=== PATIENT | male | born 1980 ===

== ENCOUNTER 2016-10-16 12:25 | Emergency (ER) | payer OTHER ==
[2016-10-16 12:39] VITALS: RESP 18; O2SAT 98
--- NOTE | 2016-10-16 13:50 | RAD ---
PROCEDURE: Radiographs of the Left Forearm HISTORY: Trauma COMPARISON: None available. TECHNIQUE: Frontal and lateral views obtained. FINDINGS: BONES: Bone alignment and mineralization are normal. No fracture or destructive lesion. JOINT SPACES: Unremarkable. OTHER FINDINGS: None. IMPRESSION: No acute fracture or dislocation.
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
--- NOTE | 2016-10-16 13:53 | RAD ---
PROCEDURE: Right ring finger radiographs. HISTORY: Trauma COMPARISON: None. TECHNIQUE: AP radiograph of the right hand, as well as spot oblique and lateral images of ring finger were obtained. FINDINGS: RIGHT RING FINGER: Normal right ring finger, without fracture or focal lesion. Remainder of the right hand (as seen on the AP view) grossly unremarkable. JOINTS: Normal. SOFT TISSUES: Normal. OTHER FINDINGS: None. IMPRESSION: No acute fracture or dislocation.
[2016-10-16 15:15] VITALS: BP 123/65; PULSE 88; TEMP 98
== END 2016-10-16 15:15 | disposition home or self-care (01) ==
LOC: C.ER 12:25
DX: S63.61 Unspecified sprain of other and unspecified finger(s) (principal); S50.12XD Contusion of left forearm, subsequent encounter; V44.6XXD Car passenger injured in collision with heavy transport vehicle or bus in traffic accident, subsequent encounter

== ENCOUNTER 2016-12-08 19:55 | Emergency (ER) | payer SELFPAY ==
[2016-12-08 20:02] VITALS: BP 128/68; PULSE 64; RESP 20; TEMP 99; O2SAT 96
--- NOTE | 2016-12-08 20:16 | C.PDOC ---
History Of Present Illness Vin Dukes, a 35 year old male, presents to the ED with a laceration to his right thumb. The patient states that he cut his finger on the edge of a sharp piece of cup. Tetanus up to date. Denies numbness, weakness. Time Seen by Provider: 12/08/16 20:05 Chief Complaint (Nursing): Abnormal Skin Integrity History Per: Patient History/Exam Limitations: no limitations Onset/Duration Of Symptoms: Hrs Current Symptoms Are (Timing): Still Present Past Medical History Reviewed: Historical Data, Nursing Documentation, Vital Signs Vital Signs: Last Vital Signs Temp 99.0 F 12/08/16 19:58 Pulse 64 12/08/16 19:58 Resp 20 12/08/16 19:58 BP 128/68 12/08/16 19:58 Pulse Ox 96 12/08/16 20:30 - Medical History PMH: No Chronic Diseases Surgical History: No Surg Hx Family History: States: Unknown Family Hx - Social History Hx Alcohol Use: Yes Hx Substance Use: No - Immunization History Hx Tetanus Toxoid Vaccination: Yes Hx Influenza Vaccination: No Hx Pneumococcal Vaccination: No Review Of Systems Musculoskeletal: Positive for: Other (laceration to right thumb.) Neurological: Negative for: Weakness, Numbness Physical Exam - Physical Exam Appears: Non-toxic, No Acute Distress Skin: Normal Color, Warm, Dry, No Rash Head: Atraumatic, Normacephalic, No Tenderness, No Swelling Eye(s): bilateral: Normal Inspection, PERRL, EOMI Back: Normal Inspection, No CVA Tenderness Extremity: Normal ROM (Full ROM to right thumb), No Tenderness, No Pedal Edema, No Deformity, No Swelling, Other (0.5 cm laceration to lateral aspect of the distal right thumb) Neurological/Psych: Oriented x3, Normal Speech, Normal Cognition, Normal Motor, Normal Sensation Gait: Steady ED Course And Treatment O2 Sat by Pulse Oximetry: 96 (RA) Pulse Ox Interpretation: Normal Laceration - Laceration Repair finger laceration Wound Length (In cm): .5cm Description Of Wound: Linear Wound Cleansed With: Betadine, Sterile Saline Wound Examination: Irrigated With Saline, No FB With Wound Exploration, No Tendon Injury With Wound Exploration Wound Closure: Steri Strips, Skin Glue Wound Complexity: Simple Medical Decision Making Medical Decision Making: Patient tolerated procedure well. finger splint was applied by JAMARI Muir to avoid movement. Disposition - Disposition Referrals: [facility] [Outside] Disposition: HOME/ ROUTINE Disposition Time: 20:30 Condition: GOOD Additional Instructions: KEEP THE WOUND CLEAN AND DRY. REMOVE THE STERI STRIPES IN 1 WEEK. Instructions: Laceration (ED), Skin Adhesive Care (ED) Forms: [employer] (Slovenian) - Clinical Impression Clinical Impression: Laceration - Scribe Statement The provider has reviewed the documentation as recorded by the Scribnorbert Feliz All medical record entries made by the Maverickibe were at my direction and personally dictated by me. I have reviewed the chart and agree that the record accurately reflects my personal performance of the history, physical exam, medical decision making, and the department course for this patient. I have also personally directed, reviewed, and agree with the discharge instructions and disposition.
== END 2016-12-08 20:36 | disposition home or self-care (01) ==
LOC: C.ER 19:55
DX: S61.011A Laceration without foreign body of right thumb without damage to nail, initial encounter (principal); W45.8XXA Other foreign body or object entering through skin, initial encounter

== ENCOUNTER 2017-04-04 11:06 | Inpatient (IN) | payer OTHER ==
[2017-04-04] MEDS ORDERED: Sodium Chloride 0.9% 1,000 ML IV ONE (12:06)
--- NOTE | 2017-04-04 12:20 | C.PDOC ---
History Of Present Illness 36 y/o male, with no significant PMHx, presents to ED c/o lower abdominal pain, and nausea since yesterday. Denies vomiting, diarrhea, or fever. Time Seen by Provider: 04/04/17 11:31 Chief Complaint (Nursing): Abdominal Pain History Per: Patient History/Exam Limitations: no limitations Onset/Duration Of Symptoms: Days Current Symptoms Are (Timing): Still Present Radiation Of Pain To:: None Quality Of Discomfort: "Pain" Associated Symptoms: Nausea Alleviating Factors: None Recent travel outside of the [place]: No Additional History Per: Patient Past Medical History Reviewed: Historical Data, Nursing Documentation, Vital Signs Vital Signs: Last Vital Signs Temp 98.1 F 04/04/17 15:36 Pulse 73 04/04/17 15:36 Resp 16 04/04/17 15:36 BP 145/75 04/04/17 15:36 Pulse Ox 98 04/04/17 15:36 Family History: States: Unknown Family Hx - Social History Hx Alcohol Use: Yes Hx Substance Use: No - Immunization History Hx Tetanus Toxoid Vaccination: Yes Hx Influenza Vaccination: No Hx Pneumococcal Vaccination: No Review Of Systems Except As Marked, All Systems Reviewed And Found Negative. Constitutional: Negative for: Fever, Chills Gastrointestinal: Positive for: Nausea, Abdominal Pain. Negative for: Vomiting , Diarrhea, Constipation Genitourinary: Negative for: Dysuria, Frequency, Hematuria Physical Exam - Physical Exam Appears: Non-toxic, No Acute Distress Skin: Normal Color, Warm, Dry Head: Atraumatic, Normacephalic Eye(s): bilateral: Normal Inspection Oral Mucosa: Moist Chest: Symmetrical Cardiovascular: Rhythm Regular, No Murmur Respiratory: Normal Breath Sounds, No Rales, No Rhonchi, No Wheezing Gastrointestinal/Abdominal: Soft, Tenderness (RLQ), No Guarding, No Rebound Back: No CVA Tenderness Extremity: Normal ROM Neurological/Psych: Oriented x3, Normal Speech ED Course And Treatment - Laboratory Results Result Diagrams: 04/04/17 13:13 04/04/17 13:13 Lab Interpretation: No Acute Changes O2 Sat by Pulse Oximetry: 99 Pulse Ox Interpretation: Normal - CT Scan/US No standard instances Other Rad Studies (CT/US): Read By Radiologist, Radiology Report Reviewed CT/US Interpretation: FINDINGS: LOWER THORAX: Unremarkable. LIVER: Liver is upper limits of normal measuring nearly 18 cm in CC dimension. No obvious hepatic mass collection or calcification identified on this noncontrast study. GALLBLADDER AND BILE DUCTS: Gallbladder is physiologically distended. No evidence of intraluminal gallbladder calculi. PANCREAS: Portions of the pancreas are not well delineated particularly near the pancreatic head and proximal body due to adjacent non-opacified bowel however the visualized portions of the pancreas otherwise appear grossly unremarkable without masses collections calcifications or significant ductal dilatation. SPLEEN: Spleen exhibits normal size and attenuation pattern without mass collection or calcification. ADRENALS: . No adrenal lesions are identified. KIDNEYS AND URETERS: There is a vague approximately 11.5 mm rounded low attenuation anterior cortex mid/lower pole right kidney associate with a punctate calcification consistent with a complex cyst. Followup nonemergent ultrasound could be performed for further evaluation. Additional punctate calcification seen anterior aspect left renal collecting system mid-lower pole left kidney. BLADDER: Urinary bladder is incompletely distended. No evidence of intraluminal urinary bladder calculi. REPRODUCTIVE: Prostate gland measures approximately 3.7 cm in transverse dimension and mildly encroaches -compresses the floor of the urinary bladder. . APPENDIX: Appendix is not seen with certainty however what probably represents a very tiny small caliber retrocecal normal appearing appendix best seen on axial image number [id number]. No periappendiceal inflammatory changes. BOWEL: Evaluation of the bowel is somewhat limited the due to the lack of oral contrast material. The stomach is incompletely distended which presumably accounts for slight thick-walled appearance. Visualized loops of small bowel exhibit normal without evidence of tethering. There appears to be some mild wall thickening of the wall of the terminal ileum. Rule out nonspecific enteritis. No evidence of acute mechanical small bowel obstruction. Moderate amount of stool seen within the cecum and ascending colon with moderate amount of air amount of air and lesser amount of stool within the transverse colon. Most of the descending and sigmoid colon collapsed. Note that the there does appear to be prominence of submucosal fat within the descending and sigmoid colon; rule out sequela of chronic inflammation. PERITONEUM: Unremarkable. No fluid collection. No free air. LYMPH NODES: Unremarkable. No enlarged lymph nodes. VASCULATURE: No evidence of abdominal aortic or iliac artery aneurysm. BONES: No acute compression fractures. Minor chronic anterior stature loss of the T11, T12 and L1 segments. Mild multilevel degenerative spondylosis. OTHER FINDINGS: None. IMPRESSION: Mild wall thickening of the terminal ileum ; rule out nonspecific enteritis. . Note that the there does appear to be prominence of submucosal fat within the descending and sigmoid colon; rule out sequela of chronic inflammation. . Rule out Crohn's disease. Tiny cyst with a punctate calcification along peripheral border (complex cyst) mid to lower pole right kidney. Followup studies recommended for further evaluation. Punctate nonobstructing calculus within the anterior collecting system mid to lower pole left kidney. Progress Note: Blood work, UA, Abd & Pelvis CT ordered and reviewed. Pt was given Toradol and IV fluids. Case discussed and patient evaluated by university president who request zosyn and admission to Dr Gee. Treated with zosyn IV Reassessment Condition: Unchanged Medical Decision Making Medical Decision Making: patient continued to have RLQ abdominal pain resident care aide consulted who evaluated at bedside Disposition Discussed With .: Tacho Gee Doctor Will See Patient In The: Hospital - Disposition Disposition: HOSPITALIZED Disposition Time: 16:20 Condition: STABLE Forms: [employer] (Solomon Islander) - POA Present On Arrival: None - Clinical Impression Clinical Impression: Abdominal pain, Appendicitis - PA / MANAGER AVIATION / Resident Statement MD/DO has reviewed & agrees with the documentation as recorded. - Scribe Statement The provider has reviewed the documentation as recorded by the Maverickibnorbert Kevin All medical record entries made by the Roger were at my direction and personally dictated by me. I have reviewed the chart and agree that the record accurately reflects my personal performance of the history, physical exam, medical decision making, and the department course for this patient. I have also personally directed, reviewed, and agree with the discharge instructions and disposition.
[2017-04-04 13:25] LABS: BASO # 0.1 K/uL (0.0-0.2); BASO % 0.5 % (0.0-2.0); EOS % 0.1 % (0.0-4.0); HEMATOCRIT 44.5 % (35.0-51.0); LYMPH # 1.2 K/uL (1.0-4.3); LYMPH % 10.5 % (20.0-40.0); MEAN CELL VOLUME 83.2 fL (80.0-94.0); MEAN CORPUSCULAR HEMOGLOBIN 27.6 pg (27.0-31.0); MEAN CORPUSCULAR HGB CONC 33.2 g/dL (33.0-37.0); MEAN PLATELET VOLUME 7.7 fL (7.2-11.7); MONO # 0.6 K/uL (0.0-0.8); MONO % 5.3 % (0.0-10.0); RED CELL DISTRIBUTION WIDTH 12.3 % (11.5-14.5); WHITE BLOOD COUNT 11.2 K/uL (4.8-10.8)
--- NOTE | 2017-04-04 13:25 | CT ---
PROCEDURE: CT scan abdomen pelvis 04/04/2017 HISTORY: Pain COMPARISON: No prior study available for comparison TECHNIQUE: Contiguous helical/transaxial images of the abdomen and pelvis pelvis performed without oral or intravenous. Coronal and Sagittal reformats generated. Radiation dose: Total exam DLP = 504.46 mGy-cm. This CT exam was performed using one or more of the following dose reduction techniques: Automated exposure control, adjustment of the mA and/or kV according to patient size, and/or use of iterative reconstruction technique. FINDINGS: LOWER THORAX: Unremarkable. LIVER: Liver is upper limits of normal measuring nearly 18 cm in CC dimension. No obvious hepatic mass collection or calcification identified on this noncontrast study. GALLBLADDER AND BILE DUCTS: Gallbladder is physiologically distended. No evidence of intraluminal gallbladder calculi. PANCREAS: Portions of the pancreas are not well delineated particularly near the pancreatic head and proximal body due to adjacent non-opacified bowel however the visualized portions of the pancreas otherwise appear grossly unremarkable without masses collections calcifications or significant ductal dilatation. SPLEEN: Spleen exhibits normal size and attenuation pattern without mass collection or calcification. ADRENALS: . No adrenal lesions are identified. KIDNEYS AND URETERS: There is a vague approximately 11.5 mm rounded low attenuation anterior cortex mid/lower pole right kidney associate with a punctate calcification consistent with a complex cyst. Followup nonemergent ultrasound could be performed for further evaluation. Additional punctate calcification seen anterior aspect left renal collecting system mid-lower pole left kidney. BLADDER: Urinary bladder is incompletely distended. No evidence of intraluminal urinary bladder calculi. REPRODUCTIVE: Prostate gland measures approximately 3.7 cm in transverse dimension and mildly encroaches -compresses the floor of the urinary bladder. . APPENDIX: Appendix is not seen with certainty however what probably represents a very tiny small caliber retrocecal normal appearing appendix best seen on axial image number [id number]. No periappendiceal inflammatory changes. BOWEL: Evaluation of the bowel is somewhat limited the due to the lack of oral contrast material. The stomach is incompletely distended which presumably accounts for slight thick-walled appearance. Visualized loops of small bowel exhibit normal without evidence of tethering. There appears to be some mild wall thickening of the wall of the terminal ileum. Rule out nonspecific enteritis. No evidence of acute mechanical small bowel obstruction. Moderate amount of stool seen within the cecum and ascending colon with moderate amount of air amount of air and lesser amount of stool within the transverse colon. Most of the descending and sigmoid colon collapsed. Note that the there does appear to be prominence of submucosal fat within the descending and sigmoid colon; rule out sequela of chronic inflammation. PERITONEUM: Unremarkable. No fluid collection. No free air. LYMPH NODES: Unremarkable. No enlarged lymph nodes. VASCULATURE: No evidence of abdominal aortic or iliac artery aneurysm. BONES: No acute compression fractures. Minor chronic anterior stature loss of the T11, T12 and L1 segments. Mild multilevel degenerative spondylosis. OTHER FINDINGS: None. IMPRESSION: Mild wall thickening of the terminal ileum ; rule out nonspecific enteritis. . Note that the there does appear to be prominence of submucosal fat within the descending and sigmoid colon; rule out sequela of chronic inflammation. . Rule out Crohn's disease Tiny cyst with a punctate calcification along peripheral border (complex cyst) mid to lower pole right kidney. Followup studies recommended for further evaluation. Punctate nonobstructing calculus within the anterior collecting system mid to lower pole left kidney.
[2017-04-04 13:34] LABS: ALKALINE PHOSPHATASE 86 U/L (38-126); ALT/SGPT 58 U/L (21-72); AST/SGOT 29 U/L (17-59); BILIRUBIN,TOTAL 0.7 mg/dL (0.2-1.3); BLOOD UREA NITROGEN 7 mg/dL (9-20); CALCIUM 8.7 mg/dl (8.6-10.4); CARBON DIOXIDE 28 mmol/L (22-30); CHLORIDE 102 mmol/L (98-107); GFR AFRICAN-AMERICAN > 60; GLUCOSE,RANDOM 108 mg/dL (75-110); SODIUM 136 mmol/L (132-148); TOTAL PROTEIN 8.4 g/dL (6.3-8.3)
[2017-04-04 13:35] LABS: ALB/GLOB RATIO 0.9 (1.0-2.1)
[2017-04-04 14:38] LABS: RBC URINE 32 /hpf (0-3); URINE BILIRUBIN NEGATIVE (NEGATIVE); URINE BLOOD 3+ (NEGATIVE); URINE COLOR Yellow (YELLOW); URINE GLUCOSE (UA) NORMAL (Normal); URINE KETONE 1+ mg/dL (NEGATIVE); URINE LEUKOCYTE ESTERASE NEG Leu/uL (Negative); URINE PROTEIN NEGATIVE (NEGATIVE); URINE UROBILINOGEN NORMAL mg/dL (0.2-1.0); WBC URINE 1 /hpf (0-5)
[2017-04-04] MEDS ORDERED: Piperacillin/Tazobact 3.375 gm 100 ML IV STA (16:10)
--- NOTE | 2017-04-04 16:27 | CP.PCM.HP ---
History of Present Illness - History of Present Illness History of Present Illness: General Surgery: Dr Gee pt is a 36M with no PMH who presents to ED with abdominal pain. pt states pain started last night around the umbilicus, and over the course of the evening migrated to the RLQ. He has had associated nausea, but no vomiting. Several episodes of diarrhea, non-bloody. Pt states he has never had pain like this before. No family history of IBS/IBD. Pt states he is very hungry PMH: none PSH: none Social: marijuana, occasional drinker Note: pt requesting no narcotics. Present on Admission - Present on Admission Any Indicators Present on Admission: No Review of Systems - Review of Systems All systems: reviewed and no additional remarkable complaints except (as per hpi ) Past Patient History - Infectious Disease Hx of Infectious Diseases: None - Past Social History Smoking Status: Heavy Smoker > 10 Cigarettes Daily - PSYCHIATRIC Hx Substance Use: No - SURGICAL HISTORY Hx Surgeries: No - ANESTHESIA Hx Anesthesia: No Hx Anesthesia Reactions: No Meds Allergies/Adverse Reactions: Allergies Allergy/AdvReac Type Severity Reaction Status Date / Time No Known Allergies Allergy Verified 04/04/17 11:29 Physical Exam - Constitutional Appears: Well, No Acute Distress - Head Exam Head Exam: ATRAUMATIC, NORMAL INSPECTION, NORMOCEPHALIC - Eye Exam Eye Exam: EOMI, Normal appearance, PERRL Pupil Exam: NORMAL ACCOMODATION, PERRL - ENT Exam ENT Exam: Mucous Membranes Moist, Normal Exam - Neck Exam Neck exam: Positive for: Normal Inspection - Respiratory Exam Respiratory Exam: Clear to Auscultation Bilateral, NORMAL BREATHING PATTERN - Cardiovascular Exam Cardiovascular Exam: REGULAR RHYTHM - GI/Abdominal Exam GI & Abdominal Exam: Guarding (localized guarding to RLQ), Normal Bowel Sounds, Soft, Tenderness (RLQ ) Additional comments: - psoas - rovsings + obturator - Rectal Exam Rectal Exam: NORMAL INSPECTION - Exam Exam: Circumcision, NORMAL INSPECTION External exam: NORMAL EXTERNAL EXAM Speculum exam: NORMAL SPECULUM EXAM Bimanual exam: NORMAL BIMANUAL EXAM - Extremities Exam Extremities exam: Positive for: normal inspection - Back Exam Back exam: NORMAL INSPECTION - Neurological Exam Neurological exam: Alert, CN II-XII Intact, Normal Gait, Oriented x3, Reflexes Normal - Psychiatric Exam Psychiatric exam: Normal Affect, Normal Mood - Skin Skin Exam: Dry, Intact, Normal Color, Warm Results - Vital Signs Recent Vital Signs: Last Vital Signs Temp 98.1 F 04/04/17 15:36 Pulse 73 04/04/17 15:36 Resp 16 04/04/17 15:36 BP 145/75 04/04/17 15:36 Pulse Ox 99 04/04/17 16:19 - Labs Result Diagrams: 04/04/17 13:13 04/04/17 13:13 Labs: Laboratory Results - last 24 hr 04/04/17 04/04/17 04/04/17 13:13 13:13 14:12 WBC 11.2 H RBC 5.35 Hgb 14.8 Hct 44.5 MCV 83.2 MCH 27.6 MCHC 33.2 RDW 12.3 Plt Count 271 MPV 7.7 Neut % (Auto) 83.6 H Lymph % (Auto) 10.5 L White % (Auto) 5.3 Eos % (Auto) 0.1 Baso % (Auto) 0.5 Neut # 9.3 H Lymph # 1.2 White # 0.6 Eos # 0.0 Baso # 0.1 Sodium 136 Potassium 4.0 Chloride 102 Carbon Dioxide 28 Anion Gap 10 BUN 7 L Creatinine 0.8 Est GFR ( Amer) > 60 Est GFR (Non-Af Amer) > 60 Random Glucose 108 Calcium 8.7 Total Bilirubin 0.7 AST 29 ALT 58 Alkaline Phosphatase 86 Total Protein 8.4 H Albumin 4.1 Globulin 4.3 H Albumin/Globulin Ratio 0.9 L Lipase 25 Urine Color Yellow Urine Clarity Clear Urine pH 6.0 Ur Specific Chin[place] 1.014 Urine Protein Negative Urine Glucose (UA) Normal Urine Ketones 1+ H Urine Blood 3+ H Urine Nitrate Negative Urine Bilirubin Negative Urine Urobilinogen Normal Ur Leukocyte Esterase Neg Urine WBC (Auto) 1 Urine RBC (Auto) 32 H Assessment & Plan - Assessment and Plan (Free Text) Assessment: 36M with undifferentiated abdominal pain; r/o appendicitis Plan: admit IV abx IV fluids can trial CLD - NPO @ [facility] if pt does not improve with consider dx laparoscopy in the AM d/w Dr Gerard Araiza, PGY3
[2017-04-04] MEDS: Sodium Chloride 0.9% 1,000 ML IV SCH (16:36)
[2017-04-04] MEDS ORDERED: Piperacill/Tazo 3.375gm in Dex 3.375 GM/50 ML BAG IVPB ONE (17:00)
[2017-04-04] MEDS: Piperacill/Tazo 3.375gm in Dex 3.375 GM/50 ML BAG IVPB SCH (22:46)
[2017-04-05] MEDS: Sodium Chloride 0.9% 1,000 ML IV SCH ×3 (02:46→13:49)
[2017-04-05] MEDS: Piperacill/Tazo 3.375gm in Dex 3.375 GM/50 ML BAG IVPB SCH ×4 (04:43→23:55)
[2017-04-05 08:11] LABS: BASO # 0.1 K/uL (0.0-0.2); EOS # 0.1 K/uL (0.0-0.7); EOS % 0.6 % (0.0-4.0); LYMPH # 2.2 K/uL (1.0-4.3); LYMPH % 22.6 % (20.0-40.0); MEAN CELL VOLUME 82.7 fL (80.0-94.0); MEAN CORPUSCULAR HEMOGLOBIN 27.8 pg (27.0-31.0); MEAN CORPUSCULAR HGB CONC 33.6 g/dL (33.0-37.0); MEAN PLATELET VOLUME 7.6 fL (7.2-11.7); MONO % 10.1 % (0.0-10.0); RED CELL DISTRIBUTION WIDTH 12.3 % (11.5-14.5); WHITE BLOOD COUNT 9.5 K/uL (4.8-10.8)
[2017-04-05 08:29] LABS: ALB/GLOB RATIO 1.4 (1.0-2.1); ALKALINE PHOSPHATASE 66 U/L (38-126); ALT/SGPT 49 U/L (21-72); AST/SGOT 21 U/L (17-59); BILIRUBIN,TOTAL 0.9 mg/dL (0.2-1.3); BLOOD UREA NITROGEN 8 mg/dL (9-20); CARBON DIOXIDE 28 mmol/L (22-30); CHLORIDE 105 mmol/L (98-107); GFR AFRICAN-AMERICAN > 60; GLUCOSE,RANDOM 87 mg/dL (75-110); POTASSIUM 4.1 mmol/L (3.6-5.2); SODIUM 138 mmol/L (132-148); TOTAL PROTEIN 6.1 g/dL (6.3-8.3)
[2017-04-05 08:33] LABS: INR 1.2
[2017-04-05] MEDS ORDERED: Pneumococcal 23-Valent Vaccine IM ONE (10:00)
[2017-04-05] MEDS ORDERED: Influenza Vaccine 60 mcg/0.5 mL SYR (4YR UP) IM ONE (10:00)
[2017-04-05] MEDS ORDERED: Bupivacaine-Epi 0.5%-1:200,000 PF Inj IJ ONE (10:45)
[2017-04-05] MEDS ORDERED: Propofol 10 mg/ml Inj (20 ML) ONE (11:37)
[2017-04-05] MEDS ORDERED: Midazolam 2 MG/2 ML VIAL ONE (11:37)
[2017-04-05] MEDS ORDERED: Lactated Ringer's 1,000 ML IV ONE (11:37)
[2017-04-05] MEDS ORDERED: Neostigmine Methylsulfate 3mg/3ml Syringe IV ONE (12:25)
[2017-04-05] MEDS ORDERED: HYDROmorphone 0.5 mg/0.5 ml ISec IVP PRN ×3 (12:44→18:10)
--- NOTE | 2017-04-05 12:44 | PCM.SURG1 ---
Surgeon's Initial Post Op Note - Surgeon's Notes Surgeon: Dr. Gee Cigar Bander Hand: Dr. Rudd PGY1 Type of Anesthesia: General Endo, Local Pre-Operative Diagnosis: Appendicitis Operative Findings: see operative report Post-Operative Diagnosis: Appendicitis Operation Performed: Laparascopic Appendectomy Specimen/Specimens Removed: Appendix Estimated Blood Loss: EBL {In ML}: 10 Blood Products Given: N/A Drains Used: No Drains Post-Op Condition: Good Date of Surgery/Procedure: 04/05/17 Time of Surgery/Procedure: 12:44
--- NOTE | 2017-04-05 13:50 | OP ---
PROCEDURE DATE: 04/04/2017 PREOPERATIVE DIAGNOSIS: Acute appendicitis. POSTOPERATIVE DIAGNOSIS: Acute appendicitis. PROCEDURE: Laparoscopic appendectomy. FINDINGS: The appendix was markedly swollen, enlarged, but there was no gross perforation noted, no fluid in the peritoneal cavity. DESCRIPTION OF PROCEDURE: Under general anesthesia, the patient was prepared and draped in the usual sterile fashion. CO2 was insufflated through a Veress needle inserted in the umbilical area. A 12 mm trocar was inserted in the umbilicus through which a laparoscope was inserted under direct vision and 5 mm suprapubic port and then a 5 mm left lower quadrant ports were inserted. Through this ports, the grasper and the [place] port was introduced. The appendix was then identified. The base was transected with the aid of the Endo DAI and mesoappendix was treated in a similar fashion. The appendix with the mesoappendix was placed in the EndoCatch and was extracted through the umbilical port. The area was irrigated with large amount of saline solution. Irrigating fluid was suctioned out. CO2 was allowed to escape from the peritoneal cavity, trocars removed, and the wound closed in a routine fashion. There was no bleeding noted at the end of the procedure was inspected. Estimated blood loss about 10 mL. No complications. Tacho Gee MD
[2017-04-05 14:04] VITALS: RESP 20
[2017-04-05] MEDS: Lactated Ringer's 1,000 ML IV SCH (16:49)
[2017-04-05] MEDS ORDERED: HYDROmorphone 1 mg/ml ISec IVP PRN (23:15)
[2017-04-06] MEDS: Lactated Ringer's 1,000 ML IV SCH (02:15)
[2017-04-06] MEDS: HYDROmorphone 1 mg/ml ISec IVP PRN ×3 (04:27→12:00)
[2017-04-06] MEDS: Piperacill/Tazo 3.375gm in Dex 3.375 GM/50 ML BAG IVPB SCH ×2 (04:30→10:23)
[2017-04-06 09:02] LABS: BASO # 0.1 K/uL (0.0-0.2); BASO % 0.6 % (0.0-2.0); EOS % 0.1 % (0.0-4.0); HEMATOCRIT 38.4 % (35.0-51.0); LYMPH # 1.8 K/uL (1.0-4.3); LYMPH % 10.8 % (20.0-40.0); MEAN CELL VOLUME 82.4 fL (80.0-94.0); MEAN CORPUSCULAR HEMOGLOBIN 27.6 pg (27.0-31.0); MEAN CORPUSCULAR HGB CONC 33.5 g/dL (33.0-37.0); MEAN PLATELET VOLUME 7.9 fL (7.2-11.7); MONO # 1.2 K/uL (0.0-0.8); MONO % 7.3 % (0.0-10.0); RED CELL DISTRIBUTION WIDTH 11.8 % (11.5-14.5); WHITE BLOOD COUNT 16.6 K/uL (4.8-10.8)
[2017-04-06 09:17] LABS: ALKALINE PHOSPHATASE 63 U/L (38-126); ALT/SGPT 44 U/L (21-72); AST/SGOT 21 U/L (17-59); BILIRUBIN,TOTAL 0.8 mg/dL (0.2-1.3); BLOOD UREA NITROGEN 7 mg/dL (9-20); CALCIUM 7.9 mg/dl (8.6-10.4); CARBON DIOXIDE 27 mmol/L (22-30); CHLORIDE 101 mmol/L (98-107); GFR AFRICAN-AMERICAN > 60; GLUCOSE,RANDOM 105 mg/dL (75-110); POTASSIUM 3.6 mmol/L (3.6-5.2); SODIUM 133 mmol/L (132-148); TOTAL PROTEIN 6.1 g/dL (6.3-8.3)
[2017-04-06 09:21] LABS: ALB/GLOB RATIO 1.4 (1.0-2.1)
[2017-04-06 09:42] VITALS: BP 138/77; PULSE 71; TEMP 98.8; O2SAT 95
--- NOTE | 2017-04-06 10:45 | CP.PCM.DIS ---
Provider - Provider Date of Admission: 04/04/17 16:13 Attending physician: Tacho Gee MD Primary care physician: Dr. Gee-general surgery Consults: None Time Spent in preparation of Discharge (in minutes): 35 Diagnosis - Discharge Diagnosis (1) S/P appendectomy Status: Acute Hospital Course - Lab Results Lab Results: Most Recent Lab Values WBC 16.6 K/uL (4.8-10.8) H D 04/06/17 08:47 RBC 4.66 Mil/uL (4.40-5.90) 04/06/17 08:47 Hgb 12.9 g/dL (12.0-18.0) 04/06/17 08:47 Hct 38.4 % (35.0-51.0) 04/06/17 08:47 MCV 82.4 fL (80.0-94.0) 04/06/17 08:47 MCH 27.6 pg (27.0-31.0) 04/06/17 08:47 MCHC 33.5 g/dL (33.0-37.0) 04/06/17 08:47 RDW 11.8 % (11.5-14.5) 04/06/17 08:47 Plt Count 263 K/uL (130-400) 04/06/17 08:47 MPV 7.9 fL (7.2-11.7) 04/06/17 08:47 Neut % (Auto) 81.2 % (50.0-75.0) H 04/06/17 08:47 Lymph % (Auto) 10.8 % (20.0-40.0) L 04/06/17 08:47 Ches[place] % (Auto) 7.3 % (0.0-10.0) 04/06/17 08:47 Eos % (Auto) 0.1 % (0.0-4.0) 04/06/17 08:47 Baso % (Auto) 0.6 % (0.0-2.0) 04/06/17 08:47 Neut # 13.5 K/uL (1.8-7.0) H 04/06/17 08:47 Lymph # 1.8 K/uL (1.0-4.3) 04/06/17 08:47 Ches[place] # 1.2 K/uL (0.0-0.8) H 04/06/17 08:47 Eos # 0.0 K/uL (0.0-0.7) 04/06/17 08:47 Baso # 0.1 K/uL (0.0-0.2) 04/06/17 08:47 PT 13.0 SECONDS (9.7-12.2) H 04/05/17 08:19 INR 1.2 04/05/17 08:19 APTT 36 SECONDS (21-34) H 04/05/17 08:19 Sodium 133 mmol/L (132-148) 04/06/17 08:47 Potassium 3.6 mmol/L (3.6-5.2) 04/06/17 08:47 Chloride 101 mmol/L (98-107) 04/06/17 08:47 Carbon Dioxide 27 mmol/L (22-30) 04/06/17 08:47 Anion Gap 8 (10-20) L 04/06/17 08:47 BUN 7 mg/dL (9-20) L 04/06/17 08:47 Creatinine 0.9 mg/dL (0.8-1.5) 04/06/17 08:47 Est GFR ( Amer) > 60 04/06/17 08:47 Est GFR (Non-Af Amer) > 60 04/06/17 08:47 Random Glucose 105 mg/dL (75-110) 04/06/17 08:47 Calcium 7.9 mg/dl (8.6-10.4) L 04/06/17 08:47 Total Bilirubin 0.8 mg/dL (0.2-1.3) 04/06/17 08:47 AST 21 U/L (17-59) 04/06/17 08:47 ALT 44 U/L (21-72) 04/06/17 08:47 Alkaline Phosphatase 63 U/L (38-126) 04/06/17 08:47 Total Protein 6.1 g/dL (6.3-8.3) L 04/06/17 08:47 Albumin 3.6 g/dL (3.5-5.0) 04/06/17 08:47 Globulin 2.5 gm/dL (2.2-3.9) 04/06/17 08:47 Albumin/Globulin Ratio 1.4 (1.0-2.1) 04/06/17 08:47 Lipase 25 U/L (23-300) 04/04/17 13:13 Urine Color Yellow (YELLOW) 04/04/17 14:12 Urine Clarity Clear (Clear) 04/04/17 14:12 Urine pH 6.0 (5.0-8.0) 04/04/17 14:12 Ur Specific Mercer 1.014 (1.003-1.030) 04/04/17 14:12 Urine Protein Negative mg/dL (NEGATIVE) 04/04/17 14:12 Urine Glucose (UA) Normal mg/dL (Normal) 04/04/17 14:12 Urine Ketones 1+ mg/dL (NEGATIVE) H 04/04/17 14:12 Urine Blood 3+ (NEGATIVE) H 04/04/17 14:12 Urine Nitrate Negative (NEGATIVE) 04/04/17 14:12 Urine Bilirubin Negative (NEGATIVE) 04/04/17 14:12 Urine Urobilinogen Normal mg/dL (0.2-1.0) 04/04/17 14:12 Ur Leukocyte Esterase Neg Fransico/uL (Negative) 04/04/17 14:12 Urine WBC (Auto) 1 /hpf (0-5) 04/04/17 14:12 Urine RBC (Auto) 32 /hpf (0-3) H 04/04/17 14:12 - Hospital Course Hospital Course: 36M w/no sig PMH admitted to general surgery service with acute appendicitis. Pt was taken to OR yesterday for laparoscopic appendectomy. Pt tolerated procedure well without any complications. Pt tolerating diet, voiding, pain well controlled, had BM this AM, stable and ready for discharge home with pain prescription in chart. Diagnoses: Acute appendicitis laparoscopic appendectomy Discharge Exam - Head Exam Head Exam: ATRAUMATIC, NORMAL INSPECTION, NORMOCEPHALIC - Eye Exam Eye Exam: EOMI, Normal appearance - ENT Exam ENT Exam: Mucous Membranes Moist, Normal Exam - Neck Exam Neck exam: Full Rom, Normal Inspection - Respiratory Exam Respiratory Exam: NORMAL BREATHING PATTERN, UNREMARKABLE - Cardiovascular Exam Cardiovascular Exam: REGULAR RHYTHM, +S1, +S2 - GI/Abdominal Exam GI & Abdominal Exam: Normal Bowel Sounds, Soft, Tenderness (over surgical incision sites, mild). absent: Distended, Firm, Guarding, Hernia, Rebound, Rigid - Extremities Exam Extremities exam: normal inspection - Neurological Exam Neurological exam: Alert, CN II-XII Intact, Oriented x3 - Psychiatric Exam Psychiatric exam: Normal Affect, Normal Mood - Skin Skin Exam: Dry, Intact, Normal Color, Warm Additional comments: Abdomen with 3 incision sites with dressings in place- replaced umbilical dressing due to saturation. Other dressings in place - Clean/dry/intact Discharge Plan - Follow Up Plan Condition: STABLE Disposition: HOME/ ROUTINE Instructions: Acute Abdominal Pain (DC), Acute Abdominal Pain (GEN), Laparoscopic Appendectomy (DC), Appendicitis (DC) Additional Instructions: Please call Dr. Gee's office and schedule a follow up appointment in 1-2 weeks. No heavy lifting until cleared by surgeon. You may remove your larger bandaids tomorrow and shower. As discussed, do not pull off or remove the steri -strips (special tape), this will fall off on it's own. You may was gently with soap and water, do not scrub. Do not sit in a bath or hot tub. You may return to eating as normal. You are being given a prescription for pain medication, if you take this do not drink alcohol or drive. If you choose not to take the prescription pain medication, you may take Tylenol 400-600 mg every 8 hours as needed for pain. If you start to experience fevers, chills, or excessive bleeding from the surgical sites, please return to the hospital. For all other questions, please contact Dr. Gee's office. Referrals: Tacho Gee MD [Staff Provider] -
== END 2017-04-06 14:40 | disposition home or self-care (01) | DRG 883 ==
LOC: C.ER 11:06 → C.9E 16:13 → C.3T 16:33
PROVIDERS: ADMIT Surgery; ATTEND Surgery
PROC: 0DTJ4ZZ Resection of Appendix, Percutaneous Endoscopic Approach (ICD-10-PCS; principal; 2017-04-04)
DX: K35.80 Unspecified acute appendicitis (principal); Z87.891 Personal history of nicotine dependence

== ENCOUNTER 2017-04-10 10:06 | Emergency (ER) | payer OTHER ==
[2017-04-10 10:58] VITALS: BP 152/78; PULSE 55; RESP 18; TEMP 98; O2SAT 100
--- NOTE | 2017-04-10 10:59 | C.PDOC ---
History Of Present Illness 36 year old male, who underwent an appendectomy 5 days ago, presents to the ED for wound check. Patient states he has tenderness around the area and presents for evaluation. He denies fever, chills, vomiting, diarrhea, and has been tolerating PO intake. Surgeon: Dr. Gee Time Seen by Provider: 04/10/17 10:58 Chief Complaint (Nursing): Wound Check History Per: Patient History/Exam Limitations: no limitations Onset/Duration Of Symptoms: Days Ago (5) Current Symptoms Are (Timing): Still Present Quality Of Symptoms: Painful Additional History Per: Patient Past Medical History Reviewed: Historical Data, Nursing Documentation, Vital Signs Vital Signs: Last Vital Signs Temp 98.0 F 04/10/17 10:49 Pulse 55 L 04/10/17 10:49 Resp 18 04/10/17 10:49 BP 152/78 H 04/10/17 10:49 Pulse Ox 100 04/10/17 11:05 - Medical History PMH: No Chronic Diseases Surgical History: Appendectomy (04/06/17) - [facility] Procedures RESECTION OF APPENDIX, PERCUTANEOUS ENDOSCOPIC APPROACH (04/04/17) Family History: States: Unknown Family Hx - Social History Hx Alcohol Use: Yes Hx Substance Use: Yes (smokes marijuana) - Immunization History Hx Tetanus Toxoid Vaccination: Yes Hx Influenza Vaccination: No Hx Pneumococcal Vaccination: No Review Of Systems Constitutional: Negative for: Fever, Chills Gastrointestinal: Positive for: Abdominal Pain. Negative for: Vomiting, Diarrhea Physical Exam - Physical Exam Appears: Non-toxic, No Acute Distress Skin: Normal Color, Warm, Dry Gastrointestinal/Abdominal: Tenderness (mild, to incision site on lower abdomen ), No Other (drainage ) Neurological/Psych: Oriented x3, Normal Speech, Normal Cognition ED Course And Treatment O2 Sat by Pulse Oximetry: 100 (on RA) Pulse Ox Interpretation: Normal Medical Decision Making Medical Decision Making: Assessment: wound check Progress: Patient was evaluated by certified surgical first assistant and has been cleared for discharge. Patient has been provided work note by certified surgical first assistant. Advised to follow up with Dr. Gee in office within 1-2 days for further evaluation. Disposition - Disposition Referrals: Tacho Gee MD [Staff Provider] - Disposition Time: 10:59 Condition: STABLE Additional Instructions: follow up with your doctor in 2 days call to make an appointment continue medications as prescribed return to hospital if symptoms worsens or progress Instructions: Hematoma (ED) Forms: General Discharge Instructions, [facility] (Samoan), Work Excuse - Clinical Impression Clinical Impression: Hematoma, Visit for wound check - Scribe Statement The provider has reviewed the documentation as recorded by the Scribe (Arlene Kevin) Provider Attestation: All medical record entries made by the Scribe were at my direction and personally dictated by me. I have reviewed the chart and agree that the record accurately reflects my personal performance of the history, physical exam, medical decision making, and the department course for this patient. I have also personally directed, reviewed, and agree with the discharge instructions and disposition.
--- NOTE | 2017-04-10 11:01 | C.PDOC ---
Time Seen by Provider: 04/10/17 10:58 Chief Complaint (Nursing): Wound Check Past Medical History Vital Signs: Last Vital Signs Temp 98.0 F 04/10/17 10:49 Pulse 55 L 04/10/17 10:49 Resp 18 04/10/17 10:49 BP 152/78 H 04/10/17 10:49 Pulse Ox 100 04/10/17 10:49 Surgical History: Appendectomy (04/06/17) - [facility] Procedures RESECTION OF APPENDIX, PERCUTANEOUS ENDOSCOPIC APPROACH (04/04/17) Family History: States: Unknown Family Hx - Social History Hx Alcohol Use: Yes Hx Substance Use: Yes (smokes marijuana) - Immunization History Hx Tetanus Toxoid Vaccination: Yes Hx Influenza Vaccination: No Hx Pneumococcal Vaccination: No ED Course And Treatment O2 Sat by Pulse Oximetry: 100 Disposition Counseled Patient/Family Regarding: Diagnosis, Need For Followup - Disposition Referrals: Tacho Gee MD [Staff Provider] - Disposition Time: 10:59 Condition: STABLE Additional Instructions: follow up with your doctor in 2 days call to make an appointment continue medications as prescribed return to hospital if symptoms worsens or progress Instructions: Hematoma (ED) Forms: [employer] [facility] (Urdu), Work Excuse, General Discharge Instructions - Clinical Impression Clinical Impression: Hematoma
--- NOTE | 2017-04-10 11:11 | CP.PCM.CON ---
History of Present Illness - History of Present Illness History of Present Illness: 36M POD#5 s/p laparoscopic appendectomy. pt was given D/C instructions per documentation to follow up in Dr May office but pt arrived in ED for wound check. Minimally sore around umbilicus. No fevers chills nausea vomiting. Dressings removed. Clear to shower. Return to work in 2 weeks. F/U in Dr Gee's office next week. Contact info provided. -Teodora, PGY3 Past Patient History - Infectious Disease Hx of Infectious Diseases: None - Past Social History Smoking Status: Smoker Currrent Status Unknown - MUSCULOSKELETAL/RHEUMATOLOGICAL Hx Falls: No - PSYCHIATRIC Hx Substance Use: Yes (smokes marijuana) - SURGICAL HISTORY Hx Appendectomy: Yes (04/06/17) - ANESTHESIA Hx Anesthesia: Yes Hx Anesthesia Reactions: No Hx Malignant Hyperthermia: No Meds Allergies/Adverse Reactions: Allergies Allergy/AdvReac Type Severity Reaction Status Date / Time MAYONNAISE Allergy NAUSEA Uncoded 04/05/17 11:35 Results - Vital Signs Recent Vital Signs: Last Vital Signs Temp 98.0 F 04/10/17 10:49 Pulse 55 L 04/10/17 10:49 Resp 18 04/10/17 10:49 BP 152/78 H 04/10/17 10:49 Pulse Ox 100 04/10/17 11:06
== END 2017-04-10 11:08 | disposition home or self-care (01) ==
LOC: C.ER 10:06
DX: Z48.89 Encounter for other specified surgical aftercare (principal); L76.32 Postprocedural hematoma of skin and subcutaneous tissue following other procedure; Y83.8 Other surgical procedures as the cause of abnormal reaction of the patient, or of later complication, without mention of misadventure at the time of the procedure

== ENCOUNTER 2017-07-21 17:48 | Emergency (ER) | payer OTHER ==
[2017-07-21 17:56] VITALS: BP 118/74; PULSE 73; RESP 18; TEMP 97.9; O2SAT 95
[2017-07-21] MEDS ORDERED: Bacitracin 500 Units/gm Oint Foilpak UD TOP ONE (18:12)
--- NOTE | 2017-07-21 18:12 | C.PDOC ---
History Of Present Illness 36 year old male presents to ED with complaints of itching, pain and discomfort to to left scalp after bug bit him today at work. He now also complains of pain to his neck at base of his head. Denies any fever, bleeding, draining, dizziness. Time Seen by Provider: 07/21/17 18:01 Chief Complaint (Nursing): Abnormal Skin Integrity History Per: Patient History/Exam Limitations: no limitations Onset/Duration Of Symptoms: Hrs Current Symptoms Are (Timing): Still Present Past Medical History Reviewed: Historical Data, Nursing Documentation, Vital Signs Vital Signs: Last Vital Signs Temp 97.9 F 07/21/17 17:52 Pulse 73 07/21/17 17:52 Resp 18 07/21/17 17:52 BP 118/74 07/21/17 17:52 Pulse Ox 95 07/21/17 18:53 - Medical History PMH: No Chronic Diseases Surgical History: Appendectomy - [facility] Procedures RESECTION OF APPENDIX, PERCUTANEOUS ENDOSCOPIC APPROACH (04/04/17) Family History: States: No Known Family Hx - Social History Hx Alcohol Use: Yes (denies) Hx Substance Use: Yes (smokes marijuana) - Immunization History Hx Tetanus Toxoid Vaccination: Yes Hx Influenza Vaccination: No Hx Pneumococcal Vaccination: No Review Of Systems Constitutional: Negative for: Fever, Chills Cardiovascular: Negative for: Chest Pain Respiratory: Negative for: Shortness of Breath Gastrointestinal: Negative for: Nausea, Vomiting Musculoskeletal: Positive for: Neck Pain Skin: Positive for: Rash Physical Exam - Physical Exam Appears: Non-toxic, No Acute Distress Skin: Warm, Dry, No Rash Head: Normacephalic, Other (2 separate insect bite wounds with appropriate mild swelling and erythema on left parietal scalp and other more posterior) Eye(s): bilateral: PERRL, EOMI Oral Mucosa: Moist Tongue: Normal Appearing, No Swelling Lips: Normal Appearing, No Swelling Throat: Normal, No Erythema, No Exudate Neck: Normal ROM, Supple Cardiovascular: Rhythm Regular Respiratory: Normal Breath Sounds, No Rales, No Rhonchi, No Wheezing Gastrointestinal/Abdominal: Soft, No Tenderness, No Guarding, No Rebound Extremity: Bilateral: Atraumatic Neurological/Psych: Oriented x3, Normal Speech ED Course And Treatment O2 Sat by Pulse Oximetry: 95 (RA) Pulse Ox Interpretation: Normal Medical Decision Making Medical Decision Making: Patient with insect bites to scalp, no cellulitis. Benitezl given for pruritus and Bacitracin applied to wounds. Patient advise not to scratch and can take antihistamine for itching. Disposition Counseled Patient/Family Regarding: Diagnosis, Need For Followup - Disposition Referrals: [facility] [Outside] [facility] [employer] [facility] [Outside] Disposition: HOME/ ROUTINE Disposition Time: 18:30 Condition: GOOD Additional Instructions: Try taking antihistamine (Benadryl, Claritin, Brandy, or Zyrtec) for itching as needed Try not to scratch area Instructions: Insect Bites and Stings (DC) Forms: [facility] (Romanian) - POA Present On Arrival: None - Clinical Impression Clinical Impression: Insect bite - PA / CREDIT COLLECTOR / Resident Statement MD/DO has reviewed & agrees with the documentation as recorded. - Scribe Statement The provider has reviewed the documentation as recorded by the Scribe Kashmir Wright All medical record entries made by the Maverickibnorbert were at my direction and personally dictated by me. I have reviewed the chart and agree that the record accurately reflects my personal performance of the history, physical exam, medical decision making, and the department course for this patient. I have also personally directed, reviewed, and agree with the discharge instructions and disposition.
[2017-07-21] MEDS ORDERED: Oxycodone/Acetaminophen 5/325 mg Tab ONE (18:25)
[2017-07-21] MEDS ORDERED: Bacitracin 500 Units/gm Oint Foilpak UD ONE (18:31)
== END 2017-07-21 18:39 | disposition home or self-care (01) ==
LOC: C.ER 17:48
DX: S00.06XA Insect bite (nonvenomous) of scalp, initial encounter (principal); W57.XXXA Bitten or stung by nonvenomous insect and other nonvenomous arthropods, initial encounter; Y92.89 Other specified places as the place of occurrence of the external cause

== ENCOUNTER 2017-10-30 03:06 | Emergency (ER) | payer SELFPAY ==
--- NOTE | 2017-10-30 04:30 | C.PDOC ---
History Of Present Illness 36 year old male presents to the ER with a complaint of being bitten by a possible mosquito this morning. Patient states that in the late morning he began to notice swelling and itching to the area and was extending to the right hand. He took benadryl at 11:00 with some improvement, however, swelling and itching recurred which prompted visit. Denies pain, fever, SOB or trauma. Time Seen by Provider: 10/30/17 03:19 Chief Complaint (Nursing): Finger,Hand,&Wrist History Per: Patient History/Exam Limitations: no limitations Onset/Duration Of Symptoms: Hrs Current Symptoms Are (Timing): Still Present Recent travel outside of the [place]: No Past Medical History Reviewed: Historical Data, Nursing Documentation, Vital Signs Vital Signs: Last Vital Signs Temp 97.8 F 10/30/17 04:36 Pulse 70 10/30/17 04:36 Resp 14 10/30/17 04:36 BP 110/70 10/30/17 04:36 Pulse Ox 100 10/30/17 05:20 Surgical History: Appendectomy - [facility] Procedures RESECTION OF APPENDIX, PERCUTANEOUS ENDOSCOPIC APPROACH (04/04/17) Family History: States: Unknown Family Hx - Social History Hx Alcohol Use: Yes (denies) Hx Substance Use: Yes (smokes marijuana) - Immunization History Hx Tetanus Toxoid Vaccination: No Hx Influenza Vaccination: No Hx Pneumococcal Vaccination: No Review Of Systems Constitutional: Negative for: Fever Musculoskeletal: Negative for: Arm Pain, Hand Pain Skin: Positive for: Other (Insect bite) Neurological: Negative for: Weakness, Numbness Physical Exam - Physical Exam Appears: Non-toxic Skin: Warm, Dry Head: Atraumatic, Normacephalic Eye(s): bilateral: Normal Inspection Chest: Symmetrical Respiratory: Normal Breath Sounds, No Accessory Muscle Use, No Rhonchi, No Wheezing Extremity: Normal ROM (x4), Capillary Refill (<2 seconds), Other (Minimal localized erythema with small pimple to dorsal right forearm, minimal swelling to right distal forearm compared to the left. No warmth) Pulses: Left Radial: Normal, Right Radial: Normal Neurological/Psych: Oriented x3, Normal Speech, Normal Motor, Normal Sensation ED Course And Treatment O2 Sat by Pulse Oximetry: 100 (room air) Pulse Ox Interpretation: Normal Progress Note: Benadryl administered. Patient reports improvement of itchiness and swelling, he is resting in no acute distress, will discharge home with instructions to follow up with PMD or return if symptoms worsen. Disposition Counseled Patient/Family Regarding: Diagnosis, Need For Followup, Rx Given - Disposition Disposition: HOME/ ROUTINE Disposition Time: 04:26 Condition: STABLE Additional Instructions: Please follow up with PMD in 1-2 days for evaluation Take benadryl for itching and swelling ( Or zyrtec if sleepy with benadryl Take prednisone for 2- 3 days Return to ER if moderate swelling to RUE, redness, area feels very hot to your touch, fever or worse Prescriptions: Cetirizine HCl [Zyrtec] 10 mg PO DAILY #7 capsule DiphenhydrAMINE [Benadryl] 25 mg PO QID #14 cap predniSONE [Prednisone] 40 mg PO DAILY #6 tab Instructions: Insect Bites and Stings (DC) Forms: [facility] (Pashto) - POA Present On Arrival: None - Clinical Impression Clinical Impression: Insect bites, Allergic contact dermatitis - PA / SAP PORTAL DEVELOPER / Resident Statement MD/DO has reviewed & agrees with the documentation as recorded. - Scribe Statement The provider has reviewed the documentation as recorded by the Scribnorbert Gama All medical record entries made by the Roger were at my direction and personally dictated by me. I have reviewed the chart and agree that the record accurately reflects my personal performance of the history, physical exam, medical decision making, and the department course for this patient. I have also personally directed, reviewed, and agree with the discharge instructions and disposition.
[2017-10-30 04:37] VITALS: BP 110/70; PULSE 70; RESP 14; TEMP 97.8
[2017-10-30 05:17] VITALS: O2SAT 100
== END 2017-10-30 04:37 | disposition home or self-care (01) ==
LOC: C.ER 03:06
DX: S50.861A Insect bite (nonvenomous) of right forearm, initial encounter (principal); W57.XXXA Bitten or stung by nonvenomous insect and other nonvenomous arthropods, initial encounter; L23.9 Allergic contact dermatitis, unspecified cause